=== PATIENT | female | born 1975 | race Caucasian/White ===

== ENCOUNTER 2025-03-24 12:11 | Outpatient (REF) | payer SELFPAY ==
[2025-03-24 13:15] LABS: Resp Syncy Virus RNA Qual PCR NEGATIVE (Negative); SARS COV2 PCR INHOUSE NEGATIVE (Negative)
== END 2025-03-24 12:12 | disposition home or self-care (01) ==
LOC: HO.LNP 12:11
PROVIDERS: Visit Provider Nurse Practitioner Family
DX: Z03.818 Encounter for observation for suspected exposure to other biological agents ruled out (principal)
CPT/HCPCS: 87637